=== PATIENT | female | born 1995 | race Hispanic/Latino ===

== ENCOUNTER 2020-06-26 16:00 | Inpatient (IN) | payer OTHER ==
[2020-06-26] VITALS (21 sets, daily range): BP systolic 126–165; BP diastolic 60–93
[~2020-06-26] VITALS: Ht 154.9 cm; Wt 117.7 kg
[2020-06-26] MEDS ORDERED: FERR325T3 PO (16:29)
[2020-06-26] MEDS ORDERED: ASPI81CH33 PO (16:29)
[2020-06-26] MEDS ORDERED: PRENTAB9 PO (16:30)
[2020-06-26 17:42] LABS: HEMATOCRIT 30.7 % (36.0-47.0); HEMOGLOBIN 9.2 g/dl (12.0-15.5); MEAN CORPUSCULAR HEMOGLOBIN 22.5 pg (27.0-33.0); MEAN CORPUSCULAR VOLUME 75.1 fl (80.0-96.0); PLATELET COUNT, AUTOMATED 297 10^3/uL (150-450); RED BLOOD COUNT 4.09 10^6/uL (4.00-5.40); WHITE BLOOD COUNT 8.8 10^3/uL (4.0-10.0)
[2020-06-26 18:02] LABS: ALT/SGPT 27 U/L (12-78); BILIRUBIN,TOTAL 0.4 MG/DL (0.2-1.0); CREATININE FOR GFR 0.62 MG/DL (0.55-1.30); GLOMERULAR FILTRATION RATE > 60.0 (>60); LDH LACTATE DEHYDROGENASE 169 U/L (84-246); URIC ACID 5.1 MG/DL (2.6-6.0)
--- NOTE | 2020-06-26 19:11 | HPEPDOC ---
Obstetrical History & Physical General Date of Admission Jun 26, 2020 at 16:00 History of Present Illness Gage is a 25 y/o female, at 35.2 weeks (DYAN 07/29/20) by [address] [place] [address] r ultrasound on 12/23/19 at 8.5weeks EGA. She is a transfer via ambulance from [facility]. She started her care in the first trimester at [facility] to [facility] with Dr. Del Toro. History significant for Preeclampsia with 1st and eclampsia with 2nd , was on Labetalol for 2 months with 2nd . She had elevated BPs in the office prior to 20wks EGA, but denies chronic hypertension. She presented to [facility] 06/25/20 with a c/o flank pain. She was given several doses of Tylenol (last dose unknown), Cefazolin 2g x3 doses (last dose 06/26 @0548) for possible pyelonephritis. A renal ultrasound was done at [facility], and was negative per Dr. Del Toro's notes. During the night and morning she began to have labile blood pressures ranging 138-181/83-108 per [facility] records. She was given PO Labetalol 200mg (last dose 0935), and IVP Labetalol 20mg x2 (last dose 1250), she was also given Flexeril for her back pain. A BPP on 06/26/20 was 8/8, TREMAINE 16.7. Magnesium was started prior to her leaving [facility], Betamethasone #1 given 06/26/20 @ 1345. Labs from [facility] are as follows: 06/25/20-- H/H 9.2/29.5, PLT 310, AST17, ALT 9, PT/PTT 12.6/29.6, Uric acid 4.9, P:C ratio 0.20, Protein 23, Creatinine 112.2 06/26/20 -- H/H 8.4/27.2, [id number], AST36 ALT21, Pt/PTT 13.4/29.9, Uric acid 5.3 P:C ratio 0.16, Protein 16, Creatinine 99.6 Upon arrival to [facility] Magnesium Sulfate was discontinued temporarily for evaluation. She reports a headache, 7-8/10 on adult pain scale, "dots" in her vision prior to getting in the ambulance, and facial and hand swelling that started today. Denies RUQ pain. Reports right sided flank pain 6-02/20. Reports good movement, denies contractions, vaginal bleeding, LOF. Reports headache improved with eating dinner. Chief Complaint: Pre-eclamsia (Transfer from [facility]) Information Provided By: Patient Age: 25 : 3 Term: 1 Pre-term: 1 Abortions: 0 Livin Care Care: Good Care Dating Final EDC: Jul 29, 2020 Final EDC by: 1st trimester (US) 1st Trimester Date: December 23, 2019 Weeks + Days: 8.5 EGA at Admission: 35.2 Antepartum Course Diagnos(e)s Preeclampsia with 1st Eclampsia with 2nd Height (inches): 61 Pre- weight (lbs.): 244 Admission Weight (lbs.): 259 Change in Weight (lbs.): 15 Past Medical History Past Obstetrical History #1: Past Obstetrical History: Primgravida Date of Delivery: May 02, 2012 Gestation: 37 Type of Delivery: Spontaneous Vaginal Del. Sex of Infant: Female (6#6oz.) Complications: Yes (IOL for preeclampsia) Past Obstetrical History #2: Past Obstetrical History: Multigravida Date of Delivery: Apr 25, 2019 Gestation: 33 Type of Delivery: Spontaneous Vaginal Del. 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 Surgical History: Gallbladder, Tonsilectomy Family History Significant Family History: Other (Mother -- Hypothyroid, Preeclampsia, Sister-- Preeclampsia) Social History Marital Status: Family situation: Spouse/partner home Psychosocial History: No pertinent psych hx * Smoker: former Smoker (Quit Cigarettes 2017, Quit E-Cig 08/2019) Alcohol: Denies Drugs: denies Imunizations Tdap status: needs Influenza Status: needs Allergies Coded Allergies: raspberry (Verified Allergy, Severe, throat swells, 06/26/20) ibuprofen (Verified Adverse Reaction, Mild, nausea/vomiting, 06/26/20) Medications Scheduled Aspirin (Aspirin) 81 Mg Tab.chew, 81 MG PO DAILY Ferrous Sulfate (Ferrous Sulfate) 325 Mg Tablet.dr, 65 MG PO TID No.137/Iron/Folic Acd ( Vitamin Tablet) 1 Each Tablet, 1 TAB PO DAILY Physical Examination Physical Examination GENERAL: Alert and oriented times three. BREAST: . ABDOMEN: Gravid and non-tender to touch. Uterine tone soft, no contraction palpated. FETUS: Per bedside Sono Oblique with vertex in lower right quadrant. HEART RATE: Regular rate and rhythm. LUNGS: Clear to auscultation (CTA) bilaterally. EXTREMITIES: Mild non pitting edema in right lower leg, +1 pitting edema in left lower leg. No clonus. Deep tendon reflexes (DTRs) + 3 bilaterally. Laboratory Data 24H LABS Laboratory Tests 2 06/26/20 17:23: Serology Scanned Report Hepatitis B Testing Pertinent Laboratoy Data Blood Type: A+ RBC Antibody Screen: Negative HIV: Negative Hepatitis B: Negative Rapid Plasma Reagin: Nonreactive Rubella: Immune Chlamydia/Gonorrhea: Negative Group B Streptococcus: Unknown Glucose Tolerance Test: 138 Diag/Inter Therapy Materniti 21 - Negative 3hr GTT 81/142/135/95 Anatomy Ultrasound Ultrasound Date: Mar 09, 2020 Normal Anatomy: Yes Placenta Previa: No Estimated Weight (grams): 298 Other Ultrasounds 12/23/19 1st Trimester Dating 8w 5day DYAN 07/29/20 04/10/20 F/U anatomy unremarkable 05/12/20 TREMAINE 16.0 Placental pathology not seen. 06/16/20 BPP 8/8, TREMAINE 17.4 06/26/20 BPP 8/8, TREMAINE 16.7 Steroid Therapy Steroid Therapy: Yes Date #1: Jun 26, 2020 Reason Preeclampsia at 35 weeks Vaginal Examination Dilation: None (Per Dr. Del Toro's records) Effacement: other (Thick per Dr. Del Toro's Records) Station: Other (High Per Dr. Del Toro's records) Assessment Heart Rate (FHR): 125 Variability: Moderate Accelerations: Positive Decelerations: None Tocometer Contractions: No Multi-drug resistant Organism: No history of MDRO Assessment/Plan Assessment IUP at 35.2 weeks Category 1 FHR tracing Unstable lie Preeclampsia Plan Admit and orient to Labor and Delivery. Vet Assistant and consent Diet: Regular for dinner then Clear Liquids. Group B Streptococcus (GBS) unknown. Unable to swab due to recent antibiotics. Labs and intravenous (IV) per unit protocol. Counseled on plan of care. Betamethasone #2 06/27/20 @ 1345. Flexeril for low back pain. Continue with Magnesium Sulfate at 2g/hr after dinner per protocol. Lactated Ringers (LR): Titrate per Magnesium protocol, no more than 125mL/hr cumulative. Start 24hour urine. Preeclamptic panel and CBC every 6hours. Continuous EFM per protocol. Collaborated with Dr. Covarrubias on plan of care, and she is aware of the patient's current status. Patient and partner are aware that mode of delivery will depend on presentation. C-S as appropriate. Evelia Barth CNM Jun 26, 2020 18:28
[2020-06-26] MEDS: LR 1,000 ML IV SCH (19:22)
[2020-06-26] MEDS: MAG Sulf (OBGYN) 20GM/500ML 20,000 MG in IV 1 EA IV SCH (19:22)
[2020-06-26] MEDS: CYCLOBENZAPRINE 10MG TABLET PO PRN (19:49)
[2020-06-26] MEDS ORDERED: diphenhydrAMINE 50MG CAP PO ONE (20:15)
[2020-06-26] MEDS: FERROUS SULFATE 325MG TAB PO SCH (20:52)
[2020-06-26] MEDS ORDERED: diphenhydrAMINE 25MG CAP PO ONE (21:00)
[2020-06-27] VITALS (41 sets, daily range): BP systolic 107–172; BP diastolic 54–88
[2020-06-27 00:15] LABS: HEMATOCRIT 31.2 % (36.0-47.0); HEMOGLOBIN 9.3 g/dl (12.0-15.5); MEAN CORPUSCULAR HEMOGLOBIN 22.6 pg (27.0-33.0); MEAN CORPUSCULAR HGB CONC 29.8 g/dl (32.0-36.5); MEAN CORPUSCULAR VOLUME 75.7 fl (80.0-96.0); PLATELET COUNT, AUTOMATED 299 10^3/uL (150-450); RED BLOOD COUNT 4.12 10^6/uL (4.00-5.40); WHITE BLOOD COUNT 7.6 10^3/uL (4.0-10.0)
[2020-06-27 00:46] LABS: ALT/SGPT 26 U/L (12-78); BILIRUBIN,TOTAL 0.2 MG/DL (0.2-1.0); CREATININE FOR GFR 0.58 MG/DL (0.55-1.30); GLOMERULAR FILTRATION RATE > 60.0 (>60); LDH LACTATE DEHYDROGENASE 412 U/L (84-246); URIC ACID 5.2 MG/DL (2.6-6.0)
[2020-06-27] MEDS: MAG Sulf (OBGYN) 20GM/500ML 20,000 MG in IV 1 EA IV SCH ×3 (03:18→22:16)
[2020-06-27] MEDS: LR 1,000 ML IV SCH ×2 (03:18→22:16)
[2020-06-27] MEDS: CYCLOBENZAPRINE 10MG TABLET PO PRN ×2 (03:18→19:52)
[2020-06-27 06:28] LABS: HEMATOCRIT 29.9 % (36.0-47.0); HEMOGLOBIN 8.8 g/dl (12.0-15.5); MEAN CORPUSCULAR HEMOGLOBIN 22.2 pg (27.0-33.0); MEAN CORPUSCULAR HGB CONC 29.4 g/dl (32.0-36.5); MEAN CORPUSCULAR VOLUME 75.5 fl (80.0-96.0); PLATELET COUNT, AUTOMATED 289 10^3/uL (150-450); RED BLOOD COUNT 3.96 10^6/uL (4.00-5.40); WHITE BLOOD COUNT 8.2 10^3/uL (4.0-10.0)
[2020-06-27 06:48] LABS: ALT/SGPT 21 U/L (12-78); BILIRUBIN,TOTAL 0.3 MG/DL (0.2-1.0); CREATININE FOR GFR 0.56 MG/DL (0.55-1.30); GLOMERULAR FILTRATION RATE > 60.0 (>60); LDH LACTATE DEHYDROGENASE 153 U/L (84-246); URIC ACID 5.3 MG/DL (2.6-6.0)
[2020-06-27] MEDS ORDERED: ACETAMINOPHEN 500 MG TAB PO ONE (07:45)
--- NOTE | 2020-06-27 07:46 | IPNPDOC ---
Text Note Date of Service The patient was seen on 06/27/20. NOTE Gage is a 25 y/o at 35.2 weeks today. She reports this morning a frontal headache 7-8/10 on adult pain scale and blurry vision. Reports that she feels like her hands and legs are tight and swollen. Reports active movement and denies LOF, vaginal bleeding, and contractions. Vital signs throughout the night have remained stable with BP ranging 107-135/55-90. Lower left leg +1 pitting edema, right lower leg moderate generalized. DTRs +2, no clonus. FHR 130bpm moderate variability, positive accelerations, no decelerations, Category 1. No UC on [place], or on palpation. Labs from this morning are listed below. Plan to continue with Magnesium, light regular breakfast this AM. Consulted Dr. Covarrubias on patient status and the plan of care this morning. Item Value Date Time White Blood Count 8.2 10^3/uL 06/27/20 0555 Red Blood Count 3.96 10^6/uL L 06/27/20 0555 Hemoglobin 8.8 g/dl L 06/27/20 0555 Hematocrit 29.9 % L 06/27/20 0555 Mean Corpuscular Volume 75.5 fl L 06/27/20 0555 Mean Corpuscular Hemoglobin 22.2 pg L 06/27/20 0555 Mean Corpuscular Hemoglobin Concent 29.4 g/dl L 06/27/20 0555 Red Cell Distribution Width 15.3 % H 06/27/20 0555 Platelet Count 289 10^3/uL 06/27/20 0555 Nucleated Red Blood Cells % (auto) 0.0 % 06/27/20 0555 Creatinine 0.56 MG/DL 06/27/20 0555 Glomerular Filtration Rate > 60.0 06/27/20 0555 Uric Acid 5.3 MG/DL 06/27/20 0555 Total Bilirubin 0.3 MG/DL 06/27/20 0555 Aspartate Amino Transf (AST/SGOT) 28 U/L 06/27/20 0555 Alanine Aminotransferase (ALT/SGPT) 21 U/L 06/27/20 0555 Lactate Dehydrogenase 153 U/L 06/27/20 0555 VS,Fishbone, I+O VS, Fishbone, I+O Laboratory Tests 06/26/20 17:26 06/27/20 00:01 06/27/20 05:55 Vital Signs Date Time Temp Pulse Resp B/P (MAP) Pulse Ox O2 Delivery O2 Flow Rate FiO2 06/27/20 06:00 97.2 96 18 134/65 (88) I&O- Last 24 Hours up to 6 AM 06/27/20 06:00 Intake Total 1322 ml Output Total 4235 ml Balance -2913 ml Evelia Barth [facility] Jun 27, 2020 07:46
[2020-06-27] MEDS: PRENATAL VITAMINS CHEWABLE TABLET PO SCH (08:04)
[2020-06-27] MEDS: FERROUS SULFATE 325MG TAB PO SCH ×3 (08:04→22:20)
[2020-06-27] MEDS ORDERED: ASPIRIN 81 MG CHEW TABLET PO SCH (09:00)
[2020-06-27] MEDS ORDERED: BETAMETHASONE SOLUSPAN 6MG/ML 5ML VIAL (J0702 PER 3MG) IM SCH (14:00)
--- NOTE | 2020-06-27 14:42 | IPNPDOC ---
Text Note Date of Service The patient was seen on 06/27/20. NOTE Daily note Gage is a 25yo with SIUP at 35w3d by early u/s transferred from [facility] yesterday for concern for pre-eclampsia based on elevated bp's in the setting of hx of pre-E x2. She had received IV labetalol x2 and PO labetalol 200mg and was started on IV MgSO4, received dose of betamethasone. Since her spot urine prot:creat was 0.2 on 06/25 then 0.16 on 06/26, I requested that a 24hr urine protein be collected while patient remains on IV MgSO4 since her labs are overall wnl. She had a DIANA this morning, treated with tylenol and has been eating small meals which has helped. Good movement, no ctx/lof/vb. Patient has hx of prior delivery at 37wk (IOL for pre-E) then pre-term IOL for pre-E with questionable eclampsia (patient originally stated seizure during delivery but then stated "passed out" so story is not consistent). She remained on PO labetalol for 2 months after that delivery. Was not on HTN med prior to this , but definitely met criteria for CHTN with elevated bp prior to 20wk in this . Has been on 81mg ASA qd. Interestingly in [place], she presented for flank pain and received course of Cefazolin (3 doses) for possible pyelo, had normal renal u/s and received flexeril and tylenol prn pain. When she was admitted for possible pyelo (urinalysis was contaminated, no urine culture received), she had labile bp's, which then lead to the concern for pre-E and transfer here. Vitals: solidly normotensive on MgSO4 Gen: WDWN, sitting comfortably in bed eating when I went in to see her Abdomen: soft, gravid, NTTP Cat I FHRT with bl 150, +accels, -decels, mod kenia Chappell: no ctx Labs: 06/26 at 17:26 H/H 9.2/30.7, plt 297, creat 0.62, uric acid 5.1, AST 38, ALT 27, LDH 169 06/27 at 00:01 H/H 9.3/31.2, plt 299, creat 0.58, uric acid 5.2, AST 44, ALT 26, LDH 412 06/27 at 05:55 H/H 8.8/29.9, plt 289, creat 0.56, uric acid 5.3, AST 28, ALT 21, LDH 153 06/26 BPP 8/8 TREMAINE 16.7 (at time of BPP cephalic presentation, but later bedside u/s showed transverse and then oblique) Assessment: Gage is a 25yo with SIUP at 35w3d by early u/s transferred from [facility] yesterday for concern for pre-eclampsia based on elevated bp's in the setting of hx of pre-E x2. She has been solidly normotensive here on the MgSO4 and since spot urine:prot was 0.2 then 0.16, we are collecting 24hr UP. I suspect labile bp's in the setting of CHTN rather than development of pre-eclampsia. She received second dose of betamethasone this afternoon. Unstable lie. Plan: -Await result of 24hr urine protein approx 1630 today. If not diagnostic for pre-e, we will turn off the MgSO4 and watch bp's. Likely will be initiating a daily PO labetalol dose for her -If MgSO4 discontinued, will remove barrett catheter -CEFM for now -small regular diet -safe to proceed Sandra Covarrubias MD VSNatali I+Natali PELAYO I+O Laboratory Tests 06/26/20 17:26 06/27/20 00:01 06/27/20 05:55 Vital Signs Date Time Temp Pulse Resp B/P (MAP) Pulse Ox O2 Delivery O2 Flow Rate FiO2 06/27/20 13:09 98.4 88 126/75 (92) 06/27/20 06:00 18 l I&O- Last 24 Hours up to 6 AM 06/27/20 06:00 Intake Total 1322 ml Output Total 4235 ml Balance -2913 ml Sandra Covarrubias MD Jun 27, 2020 14:42
[2020-06-27 17:23] LABS: URINE TOTAL PROTEIN 12.4 MG/DL (0-12)
[2020-06-27] MEDS ORDERED: miSOPROStol 50 MCG 1/2 TAB (S0191) PV ONE (18:45)
[2020-06-27] MEDS ORDERED: miSOPROStol 25 MCG 1/4 TAB (S0191) PO SCH (19:00)
[2020-06-27] MEDS ORDERED: BUTORPHANOL 2 MG/ML INJ (J0595) IV PRN (19:00)
[2020-06-27] MEDS ORDERED: ACETAMINOPHEN 500 MG TAB PO PRN (19:00)
--- NOTE | 2020-06-27 19:09 | IPNPDOC ---
Text Note Date of Service The patient was seen on 06/27/20. NOTE Decision for IOL I was awaiting the 24hr urine protein, which just resulted at 496mg, rendering the diagnosis of pre-eclampsia. Since she required IV labetalol yesterday for s evere range bp's and was initiated on MgSO4, she has pre-eclampsia with severe features and we will now move toward delivery. She received her 2nd dose of IM betamethasone earlier this afternoon. I performed bedside TAUS which showed cephalic presentation. Cat I FHRT with bl 140, +accels, -decels, mod kenia No ctx pattern SCE: /-3, barrett cervical bulb placed with 40cc NS and 50mcg PV cytotec Patient endorses a moderate headache, she thinks it is from lack of sleep or from lying in bed so long. Will give 1,000mg PO tylenol and 10mg PO flexeril. Plan to repeat cytotec with 25mcg PO dose q4hr until good contraction pattern and await barrett bulb falling out. After that, will initiate pitocin as indicated Ok for epidural in active labor, if pain medication requested for latent labor, ok for 2mg IV stadol Will continue CEFM Neuro checks with continuous IV MgSO4 Repeat CBC per anesthesia protocol in anticipation of epidural later Safe to proceed MD AISSATOU Rutledge,Natali, I+O VSNatali I+O Laboratory Tests 06/27/20 00:01 06/27/20 05:55 Vital Signs Date Time Temp Pulse Resp B/P (MAP) Pulse Ox O2 Delivery O2 Flow Rate FiO2 06/27/20 18:08 93 134/81 (98) 06/27/20 16:38 97.9 06/27/20 06:00 18 I&O- Last 24 Hours up to 6 AM 06/27/20 06:00 Intake Total 1322 ml Output Total 4235 ml Balance -2913 ml Sandra Covarrubias MD Jun 27, 2020 18:41
[2020-06-27] MEDS ORDERED: PENICILLIN G POTASSIUM IV 5 MU in D5W MINI-BAG PLUS 100 ML IV ONE (20:45)
[2020-06-27 21:08] LABS: HEMOGLOBIN 8.8 g/dl (12.0-15.5); MEAN CORPUSCULAR HEMOGLOBIN 22.1 pg (27.0-33.0); MEAN CORPUSCULAR HGB CONC 29.3 g/dl (32.0-36.5); MEAN CORPUSCULAR VOLUME 75.4 fl (80.0-96.0); PLATELET COUNT, AUTOMATED 304 10^3/uL (150-450); RED BLOOD COUNT 3.98 10^6/uL (4.00-5.40); WHITE BLOOD COUNT 8.4 10^3/uL (4.0-10.0)
[2020-06-28] VITALS (59 sets, daily range): BP systolic 104–179; BP diastolic 60–102
[2020-06-28] MEDS ORDERED: PENICILLIN G POTASSIUM IV 2.5 MU in IV 1 EA IV SCH (01:00)
[2020-06-28] MEDS ORDERED: FENTANYL 2MCG/ML ROPIVACAINE 0.2% IN 0.9% NACL 100ML IVBAG As Ordered ONE (03:46)
[2020-06-28] MEDS ORDERED: LACTATED RINGER'S 1000 ML IV PRN (04:16)
[2020-06-28] MEDS ORDERED: diphenhydrAMINE 50MG/ML VIAL (J1200) IV PRN (04:16)
[2020-06-28] MEDS ORDERED: REFRIGERATOR IV KEYS XX PRN (04:16)
[2020-06-28] MEDS ORDERED: NALOXONE INJ 0.4MG/1ML VIAL (J2310 PER 1MG) IV PRN (04:16)
[2020-06-28] MEDS ORDERED: ePHEDrine SULFATE 25 MG/5 ML(5MG/ML) SYRINGE IV PRN (04:16)
[2020-06-28] MEDS ORDERED: ONDANSETRON 4MG/2ML VIAL IV PRN (04:16)
[2020-06-28] MEDS ORDERED: EPIDURAL/PCA KEYS XX PRN (04:16)
[2020-06-28] MEDS ORDERED: FENTANYL/ROPIVACAINE/NACL BAG 100 ML EPIDURAL SCH (04:16)
[2020-06-28] MEDS ORDERED: EPIDURAL COMMENT XX SCH (04:16)
[2020-06-28] MEDS: LR 1,000 ML IV SCH (04:30)
[2020-06-28] MEDS: PENICILLIN G POTASSIUM IV 2.5 MU in IV 1 EA IV SCH ×2 (06:56→11:01)
[2020-06-28 07:35] LABS: HEMATOCRIT 31.4 % (36.0-47.0); HEMOGLOBIN 9.1 g/dl (12.0-15.5); MEAN CORPUSCULAR HEMOGLOBIN 22.1 pg (27.0-33.0); MEAN CORPUSCULAR VOLUME 76.2 fl (80.0-96.0); PLATELET COUNT, AUTOMATED 326 10^3/uL (150-450); RED BLOOD COUNT 4.12 10^6/uL (4.00-5.40); WHITE BLOOD COUNT 11.2 10^3/uL (4.0-10.0)
[2020-06-28] MEDS: MAG Sulf (OBGYN) 20GM/500ML 20,000 MG in IV 1 EA IV SCH ×2 (08:20→18:13)
[2020-06-28] MEDS: FERROUS SULFATE 325MG TAB PO SCH ×3 (08:56→21:19)
[2020-06-28] MEDS: PRENATAL VITAMINS CHEWABLE TABLET PO SCH ×2 (08:56→09:00)
--- NOTE | 2020-06-28 09:10 | IPNPDOC ---
Text Note Date of Service The patient was seen on 06/28/20. NOTE Intrapartum Note Pt doing well, has epidural and comfortable overall. Was able to sleep during the night. Receiving IV MgSO4. Had 1 dose of PV 50mcg cytotec with barrett cervica l bulb and has been progressing on her own. No DIANA, vision changes. Normotensive to mild range bp's SCE: 6/75/-2, cephalic, AROM performed with clear fluid noted Will observe and if ctx pattern does not become more regular, will plan to initiate pitocin and titrate per protocol CEFM MgSO4 with neuro checks Safe to proceed Sandra Covarrubias MD VS,Natali, I+O VS, Natali I+O Laboratory Tests 06/27/20 21:04 06/28/20 07:24 Vital Signs Date Time Temp Pulse Resp B/P (MAP) Pulse Ox O2 Delivery O2 Flow Rate FiO2 06/28/20 08:22 79 147/85 (105) 06/28/20 08:13 97.0 06/28/20 06:37 18 06/27/20 21:13 Room Air I&O- Last 24 Hours up to 6 AM 06/28/20 06:00 Intake Total 4587.7 ml Output Total 4150 ml Balance 437.7 ml Sandra Covarrubias MD Jun 28, 2020 09:10
[2020-06-28] MEDS ORDERED: OXYTOCIN DRIP 30 UNITS in IV 1 EA IV SCH ×2 (09:15→12:30)
--- NOTE | 2020-06-28 09:16 | IPNPDOC ---
Text Note Date of Service The patient was seen on 06/28/20. NOTE Pt feeling intermittent pressure SCE /-2 Continue to closely observe Sandra Covarrubias MD VS,Natali, I+O VSNatali I+O Laboratory Tests 06/27/20 21:04 06/28/20 07:24 Vital Signs Date Time Temp Pulse Resp B/P (MAP) Pulse Ox O2 Delivery O2 Flow Rate FiO2 06/28/20 08:22 79 147/85 (105) 06/28/20 08:13 97.0 06/28/20 06:37 18 06/27/20 21:13 Room Air I&O- Last 24 Hours up to 6 AM 06/28/20 06:00 Intake Total 4587.7 ml Output Total 4150 ml Balance 437.7 ml Sandra Covarrubias MD Jun 28, 2020 09:16
[2020-06-28] MEDS ORDERED: DIBUCAINE 1% OINTMENT 30GM TOP PRN (12:30)
[2020-06-28] MEDS ORDERED: RHOGAM 300 MCG (1500 IU) INJ (J2790) IM SCH (12:30)
[2020-06-28] MEDS ORDERED: MEASLES,MUMPS,RUBELLA VACCINE INJ (MMR-II) (90707) SC SCH (12:30)
[2020-06-28] MEDS ORDERED: miSOPROStol 200 MCG TAB (S0191) PR ONE (12:30)
[2020-06-28] MEDS ORDERED: ACETAMINOPHEN TAB 650MG DOSE (2X325MG) PO PRN (12:30)
[2020-06-28] MEDS ORDERED: ACETAMINOPHEN 500 MG TAB PO PRN (12:30)
[2020-06-28] MEDS ORDERED: PERCOCET 5MG/325MG TAB PO ONE (13:15)
--- NOTE | 2020-06-28 13:34 | DNPDOC ---
[facility] Delivery Note Delivery Note DATE OF DELIVERY: 28 Jun 2020 PREDELIVERY DIAGNOSIS: 35w4d IOL for pre-eclampsia with severe features Morbid obesity POST DELIVERY DIAGNOSIS: Delivered. PROCEDURE: Spontaneous vaginal delivery THEATER MANAGER: Dr. Sandra Covarrubias MD ANESTHESIA: epidural ESTIMATED BLOOD LOSS: 200 mL. FINDINGS: 5 pound 12 ounce (2618g) female , Score 9/9 DELIVERY SUMMARY: Gage is a 25yo [id number] s/p uncomplicated after undergoing IOL for pre- eclampsia with severe features at 35w4d, delivering at 1110 on 06/28/20. She was transferred from [facility] for severe range bp's, having history of pre-eclampsia in both prior pregnancies. Originally spot urine prot:creat was 0.2 then 0.16, so she received 2 doses of IM betamethasone 24hr apart while a 24hr urine protein was collected, ultimately resulting 496mg. At that point, IOL was begun. She was on IV MgSO4 and will remain so until 24hr . She was 1/50/-3 starting out, and barrett cervical bulb was placed with 50mcg PV cytotec. She progressed on her own power to 6cm at which point she had AROM, with clear fluid noted. She continued to progress on her own to 8cm at which IV pitocin was started to augment labor. She then progressed to C/C/0 at which point she began pushing. Within two contractions, head delivered OA, restituted BYRON. Left anterior shoulder delivered followed by posterior shoulder and corpus. Infant was vigorous, placed on maternal abdomen, apgars 9/9. After approximately 2 minutes, cord clamped x2 and cut by FOB. With uterine massage and traction on the cord, placenta delivered spontaneously and intact with 3 vessel centrally inserted cord. IV pitocin given per protocol. More uterine massage performed with cessation of bleeding, EBL 200ml. Inspection of perineum and vagina revealed a small periurethral jaspal which was repaired with a figure of 8 using 4-0 vicryl suture, having excellent reapproximation and total hemostasis. All counts correct x2. Mom and infant were doing well when I left the room. She will receive Lovenox prophylactically starting 6hr after delivery since she will be receiving IV MgSO4 for 24hr . MD Satish Rutledge Katrina D MD Jun 28, 2020 13:34
[2020-06-28] MEDS: ENOXAPARIN 40MG/0.4ML SYRINGE (J1650 PER 10MG) SC SCH (17:09)
[2020-06-28 18:04] LABS: HEMATOCRIT 31.2 % (36.0-47.0); MEAN CORPUSCULAR HEMOGLOBIN 21.9 pg (27.0-33.0); MEAN CORPUSCULAR HGB CONC 28.8 g/dl (32.0-36.5); MEAN CORPUSCULAR VOLUME 75.9 fl (80.0-96.0); PLATELET COUNT, AUTOMATED 344 10^3/uL (150-450); RED BLOOD COUNT 4.11 10^6/uL (4.00-5.40); WHITE BLOOD COUNT 16.5 10^3/uL (4.0-10.0)
[2020-06-28 18:28] LABS: ALT/SGPT 18 U/L (12-78); BILIRUBIN,TOTAL 0.2 MG/DL (0.2-1.0); CREATININE FOR GFR 0.72 MG/DL (0.55-1.30); GLOMERULAR FILTRATION RATE > 60.0 (>60); LDH LACTATE DEHYDROGENASE 224 U/L (84-246); URIC ACID 5.8 MG/DL (2.6-6.0)
[2020-06-28] MEDS: DOCUSATE SODIUM 100 MG CAP PO SCH (21:19)
[2020-06-29] VITALS (20 sets, daily range): BP systolic 121–179; BP diastolic 61–106
[2020-06-29] MEDS: PERCOCET 5MG/325MG TAB PO PRN ×3 (02:36→20:14)
[2020-06-29] MEDS: MAG Sulf (OBGYN) 20GM/500ML 20,000 MG in IV 1 EA IV SCH (04:10)
[2020-06-29] MEDS ORDERED: hydrALAZINE 20MG/ML 1ML VIAL (J0360 PER 20MG) IV ONE (04:15)
[2020-06-29 07:22] LABS: HEMATOCRIT 31.1 % (36.0-47.0); HEMOGLOBIN 9.1 g/dl (12.0-15.5); MEAN CORPUSCULAR HEMOGLOBIN 22.3 pg (27.0-33.0); MEAN CORPUSCULAR HGB CONC 29.3 g/dl (32.0-36.5); MEAN CORPUSCULAR VOLUME 76.2 fl (80.0-96.0); PLATELET COUNT, AUTOMATED 305 10^3/uL (150-450); RED BLOOD COUNT 4.08 10^6/uL (4.00-5.40); WHITE BLOOD COUNT 11.1 10^3/uL (4.0-10.0)
[2020-06-29] MEDS: PRENATAL VITAMINS CHEWABLE TABLET PO SCH (09:13)
[2020-06-29] MEDS: DOCUSATE SODIUM 100 MG CAP PO SCH ×2 (09:13→20:13)
[2020-06-29] MEDS: NIFEdipine 30 MG XL TAB PO SCH (09:14)
[2020-06-29] MEDS: FERROUS SULFATE 325MG TAB PO SCH ×3 (09:22→20:13)
[2020-06-29] MEDS ORDERED: SLF 3 ML SYR IV PRN (13:00)
[2020-06-29] MEDS: ENOXAPARIN 40MG/0.4ML SYRINGE (J1650 PER 10MG) SC SCH (17:24)
[2020-06-29] MEDS: SLF 3 ML SYR IV SCH (20:13)
[2020-06-30] VITALS (10 sets, daily range): BP systolic 132–180; BP diastolic 70–96
[2020-06-30] MEDS: SLF 3 ML SYR IV SCH (05:32)
--- NOTE | 2020-06-30 06:31 | IPNPDOC ---
Progress Note Date of Service: Jun 30, 2020 Day#: 2 Progress Note SUBJECT: Gage is a 25-year-old 3 now Para 1-2-0-3 status post spontaneous vaginal delivery at 35-4/7 weeks' complicated by Preeclampsia with severe features. Magnesium Sulfate was discontinued at 1100 yesterday. Reports transient headache and blurred vision, denies epigastric pain and nausea. Reports swelling in legs is causing tingling in feet when she walks to the NICU, relieved with rest. She is voiding spontaneously without issue and tolerating regular diet. Pumping for baby in NICU. Reports lochia is like a normal period. Pain well controlled with Tylenol and Motrin. OBJECTIVE: VITAL SIGNS: Within normal limits, afebrile. General: Alert and oriented times three. Respiratory: Regular rate, no accessory muscle use. Abdomen: Fundus firm at U-1. Soft, non tender. Extremities: Bilateral pitting edema +1, no calf tenderness. Minimal lochia. ASSESSMENT: Day 2 PLAN: 1. Tylenol and Motrin for pain. 2. Encourage pumping and ambulation. 3. Continue with Procardia. VS, I&O, 24H, Fishbone Vital Signs/I&O Vital Signs Date Time Temp Pulse Resp B/P (MAP) Pulse Ox O2 Delivery O2 Flow Rate FiO2 06/30/20 05:38 98.8 82 17 134/70 (91) 98 Room Air I&O- Last 24 Hours up to 6 AM 06/30/20 05:59 Intake Total 1005.9 ml Output Total 1930 ml Balance -924.1 ml Laboratory Data 24H LABS Laboratory Tests 2 06/29/20 07:10: Nucleated Red Blood Cells % (auto) 0.3H CBC/BMP Laboratory Tests 06/29/20 07:10 SHARDA SANCHEZ CNM Jun 30, 2020 06:21
[2020-06-30] MEDS: DOCUSATE SODIUM 100 MG CAP PO SCH ×2 (08:49→20:59)
[2020-06-30] MEDS: FERROUS SULFATE 325MG TAB PO SCH ×3 (08:49→20:59)
[2020-06-30] MEDS: PRENATAL VITAMINS CHEWABLE TABLET PO SCH (08:49)
[2020-06-30] MEDS: NIFEdipine 30 MG XL TAB PO SCH (08:51)
[2020-06-30] MEDS ORDERED: NIFEdipine 10 MG CAP PO ONE (15:00)
[2020-06-30] MEDS: ENOXAPARIN 40MG/0.4ML SYRINGE (J1650 PER 10MG) SC SCH (17:09)
[2020-06-30] MEDS: PERCOCET 5MG/325MG TAB PO PRN (20:59)
[2020-07-01 02:00] VITALS: BP 139/87
[2020-07-01 05:32] VITALS: BP 157/84
[2020-07-01 08:26] LABS: HEMATOCRIT 32.5 % (36.0-47.0); HEMOGLOBIN 9.5 g/dl (12.0-15.5); MEAN CORPUSCULAR HEMOGLOBIN 23.2 pg (27.0-33.0); MEAN CORPUSCULAR HGB CONC 29.2 g/dl (32.0-36.5); MEAN CORPUSCULAR VOLUME 79.3 fl (80.0-96.0); PLATELET COUNT, AUTOMATED 285 10^3/uL (150-450); WHITE BLOOD COUNT 10.7 10^3/uL (4.0-10.0)
--- NOTE | 2020-07-01 09:12 | IPNPDOC ---
Progress Note Date of Service: Jul 01, 2020 Progress Note SUBJECT: Status post . Complicated by severe pre-e. Denies current symptoms of DIANA, visual changes, RUQ pain, sob, cp. However, she had intermittent DIANA yesterday. Nifedipine 10mg PO given for acute BP control yesterday. Currently on Nifedipine 30mg daily for BP control. She has been ambulating, voiding spontaneously without issue and tolerating regular diet. Lochia decreasing/minimal. Patient is ambulating well. OBJECTIVE: VITAL SIGNS: hypertensive with intermittent severe range BP, afebrile. Alert and oriented times three. Abdomen: Fundus firm at U-2. Soft, NTTP. ASSESSMENT: Status post uncomplicated spontaneous vaginal delivery, with pre- eclampsia and severe range BP. Afebrile, hemodynamically stable with no evidence of infection. Currently asymptomatic. PLAN: Adjust / increase dose of Nifedipine to 60mg a am. Routine instructions/precautions reviewed. Continue to monitor closely. Christian Jean DO VS, I&O, 24H, Natali Vital Signs/I&O Vital Signs Date Time Temp Pulse Resp B/P (MAP) Pulse Ox O2 Delivery O2 Flow Rate FiO2 07/01/20 05:32 97.5 66 16 157/84 (108) 98 Room Air Laboratory Data 24H LABS Laboratory Tests 2 07/01/20 07:23: Nucleated Red Blood Cells % (auto) 0.0 CBC/BMP Laboratory Tests 07/01/20 07:23 JEFF JEAN DO Jul 01, 2020 09:12
[2020-07-01] MEDS: PRENATAL VITAMINS CHEWABLE TABLET PO SCH (09:38)
[2020-07-01] MEDS: DOCUSATE SODIUM 100 MG CAP PO SCH ×2 (09:38→20:52)
[2020-07-01] MEDS: FERROUS SULFATE 325MG TAB PO SCH ×3 (09:38→20:52)
[2020-07-01] MEDS: NIFEdipine 30 MG XL TAB PO SCH (09:39)
[2020-07-01] MEDS: PERCOCET 5MG/325MG TAB PO PRN ×2 (09:54→17:19)
[2020-07-01 11:15] VITALS: BP_SYST 146; BP_SYST 173; BP_DIAS 80; BP_DIAS 84
[2020-07-01 14:00] VITALS: BP_SYST 102; BP_SYST 156; BP_DIAS 59; BP_DIAS 78
[2020-07-01] MEDS: ENOXAPARIN 40MG/0.4ML SYRINGE (J1650 PER 10MG) SC SCH (17:17)
[2020-07-01 18:00] VITALS: BP 158/90
[2020-07-01] MEDS: SLF 3 ML SYR IV SCH (21:49)
[2020-07-01 22:00] VITALS: BP 130/82
[2020-07-02] MEDS: PERCOCET 5MG/325MG TAB PO PRN ×2 (01:17→09:43)
[2020-07-02 02:00] VITALS: BP 132/84
[2020-07-02 06:07] VITALS: BP 122/82
[2020-07-02] MEDS: DOCUSATE SODIUM 100 MG CAP PO SCH (09:08)
[2020-07-02] MEDS: FERROUS SULFATE 325MG TAB PO SCH (09:08)
[2020-07-02] MEDS: PRENATAL VITAMINS CHEWABLE TABLET PO SCH (09:08)
[2020-07-02 09:09] VITALS: BP_SYST 141; BP_SYST 142; BP_DIAS 85
[2020-07-02] MEDS: NIFEdipine 30 MG XL TAB PO SCH (09:09)
== END 2020-07-02 09:53 | disposition home or self-care (01) | DRG 807 ==
LOC: M LDI 16:00 → M OBS 06-29 13:23
PROVIDERS: ADMIT Advanced Practice Midwife; ATTEND Obstetrics & Gynecology
PROC: 3E0P7GC Introduction of Other Therapeutic Substance into Female Reproductive, Via Natural or Artificial Opening (ICD-10-PCS; 2020-06-27)
PROC: 10E0XZZ Delivery of Products of Conception, External Approach (ICD-10-PCS; principal; 2020-06-29)
PROC: 10907ZC Drainage of Amniotic Fluid, Therapeutic from Products of Conception, Via Natural or Artificial Opening (ICD-10-PCS; 2020-06-29)
DX: O14.14 Severe pre-eclampsia complicating childbirth (principal); Z37.0 Single live birth; Z3A.35 35 weeks gestation of pregnancy; O32.0XX0 Maternal care for unstable lie, not applicable or unspecified; O99.214 Obesity complicating childbirth; E66.01 Morbid (severe) obesity due to excess calories

== ENCOUNTER → 2020-10-13 | Outpatient (CLI) | payer OTHER ==
[~2020-10-13] MED LIST: ASPI81CH33 PO; FERR325T3 PO; PRENTAB9 PO
--- NOTE | 2020-10-13 14:13 | REP ---
INDICATION: N63.10 LUMP OF R BREAST. COMPARISON: None. TECHNIQUE: MLO and CC views right breast performed tomosynthesis, multiple spot compression views performed in the region of 6 o'clock at the site of 2 palpable lumps reported at 6 o'clock. These are marked on the skin. Ultrasound of 6 o'clock region also performed at the site of the 2 palpable abnormalities. According to the technologist the more anterior lump appears to correspond to a slightly raised skin mole in the region of the areola, in the more posterior lump may represent a healing sebaceous cyst. FINDINGS: There is mild scattered fibroglandular tissue scattered throughout the right breast. No discrete mass or architectural distortion is seen. No clustered microcalcifications are seen. The Volpara volumetric breast density pattern is B. Real-time sonographic evaluation of the 6 o'clock region of the right breast is performed at the site of the 2 reported palpable lumps. No cystic or solid nodule is seen sonographically. IMPRESSION: BIRADS/ACR 1, negative mammogram and ultrasound right breast. There is no mammographic evidence of mass or clustered microcalcifications. There is no mammographic or sonographic evidence of mass at the 2 sites of reported palpable lumps in the 6 o'clock region of right breast as discussed in detail above. Clinical correlation and follow-up recommended. This patient's Tyrer-Cuzick lifetime breast cancer risk assessment score is 13.8%. This mammogram was interpreted with the aid of an FDA-approved computer-aided detection system. The patient states she had a clinical breast exam in September 2020. The patient letter being requested is M2. RECOMMENDATION: Recommend clinical correlation and follow-up. <Electronically signed by Celestino Tamez > 10/13/20 [id number]
== END ==
LOC: M WHC 12:19
PROVIDERS: ATTEND Student in an Organized Health Care Education/Training Program
DX: N63.10 Unspecified lump in the right breast, unspecified quadrant (principal)
CPT/HCPCS: 76642; 77065; G0279; G0463

== ENCOUNTER 2021-01-20 12:05 | Emergency (ER) | payer OTHER ==
[~2021-01-20] VITALS: Ht 162.6 cm; Wt 112.7 kg
[2021-01-20 12:58] LABS: HCG, SERUM QUALITATIVE POSITIVE (NEGATIVE)
[2021-01-20] MEDS ORDERED: ONDANSETRON 4 MG ORAL DISINTEGRATING TAB PO ONE (14:45)
--- NOTE | 2021-01-20 16:11 | REP ---
INDICATION: r/o ectopic. COMPARISON: None. I have been given history that there is a prior examination which was obtained elsewhere. I have no priors comparison. TECHNIQUE: Transvesical and transvaginal imaging FINDINGS: The uterus measures 8.5 x 5.8 x 6.4 cm. The parenchymal echo pattern is within normal limits. Within the uterus there is an anechoic structure with increased echoes surrounding it consistent with a decidual reaction. Within the gestational sac there is a 2nd anechoic structure consistent with a yolk sac. Additionally, there is echogenic material clearly identified in the gestational sac consistent with a pole the mean crown-rump length measurement of which is consistent with a 6 week 0 day gestational age. Doppler interrogation of this shows no evidence of cardiac activity. There is no evidence of a chorionic or subchorionic abnormality. The right ovary measures 2.6 x 1.5 x 1.6 cm and is within normal limits. Left ovary measures 3 x 1.5 x 2.3 cm and is within normal limits. There is no free fluid in cul-de-sac. IMPRESSION: There is a gestational sac seen within the uterus within which both a yolk sac and pole is identified as described above. Doppler shows no evidence of cardiac activity at this time. Follow-up is recommended. <Electronically signed by Dwight Pate > 01/20/21 [id number]
[2021-01-20] MEDS ORDERED: PYRI25TA2 PO (16:47)
[2021-01-20] MEDS ORDERED: UNIS25TA3 PO (16:47)
[2021-01-20 16:57] VITALS: BP 130/78
== END 2021-01-20 16:55 | disposition home or self-care (01) ==
LOC: M ED 12:05
DX: Z32.01 Encounter for pregnancy test, result positive (principal); O21.9 Vomiting of pregnancy, unspecified; Z88.8 Allergy status to other drugs, medicaments and biological substances; Z91.018 Allergy to other foods; Z3A.01 Less than 8 weeks gestation of pregnancy
CPT/HCPCS: 36415; 76801; 76817; 81001; 84702; 84703; 87086; 93976; 99283; Q0162